=== PATIENT | male | born 1980 | race Caucasian/White ===

== ENCOUNTER 2017-02-10 21:08 | Inpatient (IN) ==
[2017-02-10] MEDS ORDERED: PROMETHAZINE 25 MG/1 ML VIAL IM PRN (22:01)
[2017-02-10] MEDS: PANTOPRAZOLE 40 MG VIAL IV SCH (22:32)
[2017-02-10] MEDS: SODIUM CHLORIDE 0.9% 1,000 ML IV SCH (22:32)
[2017-02-10] MEDS: ONDANSETRON 4 MG/2 ML VIAL IV PRN (22:33)
[2017-02-10] MEDS: ACETAMINOPHEN 500 MG TABLET PO PRN (22:35)
[2017-02-10] MEDS ORDERED: SODIUM CHLORIDE 0.9% 1,000 ML IV ONE (22:43)
[2017-02-10 23:21] LABS: Basophils # 0.1 10*3/uL (0.0-0.2); Basophils % 0.4 % (0.0-0.8); Eosinophils # 0.2 10*3/uL (0.0-0.87); Eosinophils % 1.6 % (0.00-10.9); Hematocrit 34.3 VOL% (42.0-52.0); Hemoglobin 14.1 GM/DL (14.0-18.0); Immature Granulocytes % 0.9 %; Immature Granulocytes Absolute 0.13 #; Lymphocytes # 1.4 10*3/uL (1.4-4.0); Lymphocytes % 10.3 % (21.2-54.2); Mean Corpuscular HGB Conc 41.1 GM/DL (32-36); Mean Corpuscular Hemoglobin 35 PG (27-34); Mean Corpuscular Volume 83.9 FL (87-102); Mean Platelet Volume 9.8 FL (9.6-12.0); Monocytes # 0.7 10*3/uL (0.11-0.8); Neutrophils # 11.3 10*3/uL (1.4-7.4); Neutrophils % 81.8 % (38.7-73.9); Platelet Count 412 T/CUMM (130-400); Red Blood Count 4.09 MC/CUMM (3.8-5.5); Red Cell Distribution Width 13.6 % (9.3-17.3); White Blood Count 13.8 T/CUMM (4-12)
[2017-02-10 23:47] LABS: Band Neutrophils 2 % (0-10); Lymphocytes 15 % (20-55); Platelet Estimate Increased; Segmented Neutrophils 78 % (50-85); Total Cells Counted 100
[2017-02-11 00:03] LABS: Albumin 4.3 G/DL (3.4-5.0); Bilirubin,Total 0.4 MG/DL (0.2-1.0); Calcium 9.2 MG/DL (8.5-10.1); Magnesium 1.4 MG/DL (1.8-2.4); Osmolality,Calculated 245.3 MOS/KG (273-304); Potassium 3.8 MMOL/L (3.5-5.1); Risk Ratio 8.53; Total Protein 7.7 G/DL (6.4-8.3); VLDL CHOLESTEROL 179.2 MG/DL
[2017-02-11] MEDS ORDERED: GLUCAGON 1 MG VIAL IM PRN (00:16)
[2017-02-11] MEDS ORDERED: DEXTROSE 50% 25 GM/50 ML VIAL IV PRN ×3 (00:16→14:25)
[2017-02-11] MEDS ORDERED: INSULIN LISPRO 100 UNIT/ML SUBCUT SCH ×2 (00:30→11:00)
[2017-02-11] MEDS: INSULIN LISPRO 100 UNIT/ML SUBCUT SCH ×3 (00:42→08:58)
[2017-02-11] MEDS ORDERED: MAGNESIUM SULF RIDER 4 GM in PREMIX 1 EACH IV PRN (00:48)
[2017-02-11] MEDS ORDERED: POTASSIUM CHLORIDE 20 MEQ TABLET PO ONE (01:02)
[2017-02-11] MEDS: MAGNESIUM SULF RIDER 2 GM in PREMIX 1 EACH IV PRN ×2 (01:13→03:15)
[2017-02-11] MEDS: HYDROmorphone 2 MG/1 ML VIAL IV PRN ×7 (01:25→21:33)
[2017-02-11] MEDS: ONDANSETRON 4 MG/2 ML VIAL IV PRN ×4 (01:27→21:34)
[2017-02-11] MEDS ORDERED: CIPROFLOXACIN INJ 400 MG in PREMIX 1 EACH IV SCH (05:30)
[2017-02-11] MEDS: SODIUM CHLORIDE 0.9% 1,000 ML IV SCH ×3 (07:00→19:26)
[2017-02-11] MEDS ORDERED: hydrALAZINE 20 MG/1 ML VIAL IV PRN (07:33)
[2017-02-11] MEDS ORDERED: SODIUM CHLORIDE 0.9% 1,000 ML IV ONE ×2 (07:55→10:46)
[2017-02-11 08:54] LABS: Hematocrit 35.7 VOL% (42.0-52.0); Mean Corpuscular HGB Conc 42.3 GM/DL (32-36); Mean Corpuscular Hemoglobin 36 PG (27-34); Red Cell Distribution Width 13.6 % (9.3-17.3); White Blood Count 21.2 T/CUMM (4-12)
[2017-02-11 08:55] LABS: Basophils # 0.1 10*3/uL (0.0-0.2); Basophils % 0.4 % (0.0-0.8); Eosinophils # 0.1 10*3/uL (0.0-0.87); Eosinophils % 0.4 % (0.00-10.9); Immature Granulocytes % 1.4 %; Immature Granulocytes Absolute 0.29 #; Lymphocytes # 1.7 10*3/uL (1.4-4.0); Lymphocytes % 8.1 % (21.2-54.2); Mean Platelet Volume 9.7 FL (9.6-12.0); Monocytes # 1.2 10*3/uL (0.11-0.8); Monocytes % 5.7 % (1.7-12.7); NRBC # 0.02 10*3/uL; Neutrophils # 17.8 10*3/uL (1.4-7.4); Platelet Count 397 T/CUMM (130-400)
[2017-02-11] MEDS: COLESEVELAM 625 MG TABLET PO SCH ×2 (08:57→17:06)
[2017-02-11] MEDS: ACETAMINOPHEN 500 MG TABLET PO PRN ×3 (08:57→21:51)
[2017-02-11] MEDS: PANTOPRAZOLE 40 MG VIAL IV SCH ×2 (08:57→21:19)
[2017-02-11 09:21] LABS: Hemoglobin 15.1 GM/DL (14.0-18.0)
[2017-02-11 09:51] LABS: Calcium 8.3 MG/DL (8.5-10.1)
[2017-02-11 09:52] LABS: Albumin 4.1 G/DL (3.4-5.0); Blood Urea Nitrogen 6 MG/DL (7-18)
[2017-02-11 09:55] LABS: Alanine Aminotransferase 22 U/L (16-61)
[2017-02-11 09:56] LABS: Aspartate Amino Transferase 18 U/L (0-37)
[2017-02-11 10:05] LABS: Band Neutrophils 2 % (0-10); Eosinophils 1 % (0-10); Lymphocytes 14 % (20-55); Segmented Neutrophils 79 % (50-85); Total Cells Counted 100
[2017-02-11 10:06] LABS: Free T4 (Free Thyroxine) 0.94 NG/DL (0.76-1.46); Platelet Estimate Normal
[2017-02-11 10:08] LABS: Alkaline Phosphatase 82 U/L (45-117)
[2017-02-11 10:10] LABS: Glucose 433 MG/DL (74-106); Potassium 3.5 MMOL/L (3.5-5.1)
[2017-02-11 10:11] LABS: Magnesium 1.8 MG/DL (1.8-2.4)
[2017-02-11 10:16] LABS: Sodium 114 MMOL/L (136-145)
[2017-02-11] MEDS: PIPERACILLIN/TAZOBACTAM 3,375 MG in SODIUM CHLORIDE 0.9% 100 ML IV SCH ×2 (10:36→18:00)
[2017-02-11 11:51] LABS: Apearance,Urine CLEAR (Clear); Bilirubin,Urine Negative (Negative); Blood, Urine Small mg/dL (Negative); Glucose,Urine (UA) >=500 mg/dL (Negative); Hyaline Casts,Urine 1 /LPF (0-3); Ketones,Urine 80 mg/dL (Negative); Mucus,Urine Occasional /LPF (Occasional); Nitrite,Urine Negative (Negative); Protein,Urine 30 MG/DL; RBC,Urine <1 /HPF (0-4); Urine Color Yellow (Yellow); Urine Specific Gravity 1.025 (1.001-1.035); Urine Urobilinogen < 2.0 EU/DL (0.2-1.0); WBC,Urine <1 /HPF (0-6)
[2017-02-11 12:10] LABS: Calcium 7.7 MG/DL (8.5-10.1); Osmolality,Calculated 271.5 MOS/KG (273-304); Potassium 4.3 MMOL/L (3.5-5.1)
[2017-02-11] MEDS ORDERED: SODIUM PHOSPHATE IV PRN (13:08)
[2017-02-11] MEDS ORDERED: SODIUM BICARB INJ 100 MEQ in STERILE WATER INJ 400 ML IV PRN (13:08)
[2017-02-11] MEDS ORDERED: SODIUM CHLORIDE 0.9% IV PRN (13:08)
[2017-02-11] MEDS: INSULIN REGULAR DRIP 100 ML IV SCH ×2 (13:11→22:13)
[2017-02-11] MEDS ORDERED: CALCIUM GLUCONATE 1,000 MG in SODIUM CHLORIDE 0.9% 100 ML IV ONE (14:00)
[2017-02-11] MEDS ORDERED: SODIUM CHLORIDE 0.9% 1,000 ML IV SCH (14:09)
[2017-02-11] MEDS: ENOXAPARIN 40 MG/0.4 ML SYRINGE SUBCUT SCH (15:11)
[2017-02-11] MEDS: DEXTROSE 5% NACL 0.9% 1,000 ML IV SCH ×2 (15:40→21:13)
[2017-02-11 16:16] LABS: Osmolality,Calculated 263.4 MOS/KG (273-304); Potassium 3.7 MMOL/L (3.5-5.1)
[2017-02-11] MEDS: POTASSIUM CHLORIDE RIDER 10 MEQ in PREMIX 1 EACH IV PRN ×4 (16:31→22:18)
[2017-02-11] MEDS ORDERED: DOCUSATE SODIUM 100 MG CAPSULE PO PRN (17:22)
[2017-02-11] MEDS ORDERED: LORazepam 2 MG/1 ML VIAL IV PRN (17:23)
[2017-02-11] MEDS ORDERED: HYDROmorphone 2 MG/1 ML VIAL IV ONE (17:25)
[2017-02-11] MEDS: BISACODYL 5 MG TABLET PO PRN (18:01)
[2017-02-11] MEDS: METOCLOPRAMIDE 10 MG/2 ML VIAL IV PRN ×2 (18:21→18:29)
[2017-02-11 19:40] LABS: Calcium 7.6 MG/DL (8.5-10.1); Osmolality,Calculated 268.1 MOS/KG (273-304); Potassium 3.9 MMOL/L (3.5-5.1)
[2017-02-12 00:35] LABS: Calcium 7.3 MG/DL (8.5-10.1); Osmolality,Calculated 266.8 MOS/KG (273-304); Potassium 4.3 MMOL/L (3.5-5.1)
[2017-02-12] MEDS: SODIUM CHLORIDE 0.9% 1,000 ML IV SCH ×6 (01:14→19:10)
[2017-02-12] MEDS: ONDANSETRON 4 MG/2 ML VIAL IV PRN ×4 (01:22→20:57)
[2017-02-12] MEDS: HYDROmorphone 2 MG/1 ML VIAL IV PRN ×6 (01:27→20:56)
[2017-02-12] MEDS: ACETAMINOPHEN 500 MG TABLET PO PRN ×4 (02:00→16:15)
[2017-02-12] MEDS: VANCOMYCIN INJ 1,750 MG in SODIUM CHLORIDE 0.9% 500 ML IV SCH ×3 (02:13→18:58)
[2017-02-12] MEDS: PIPERACILLIN/TAZOBACTAM 3,375 MG in SODIUM CHLORIDE 0.9% 100 ML IV SCH ×3 (03:24→18:01)
[2017-02-12 04:20] LABS: Bilirubin,Total 0.5 MG/DL (0.2-1.0); Calcium 7.6 MG/DL (8.5-10.1); Osmolality,Calculated 267.5 MOS/KG (273-304); Potassium 4.2 MMOL/L (3.5-5.1); Risk Ratio 11.35; Total Protein 6.4 G/DL (6.4-8.3)
[2017-02-12 04:55] LABS: Basophils # 0.1 10*3/uL (0.0-0.2); Basophils % 0.4 % (0.0-0.8); Eosinophils # 0.1 10*3/uL (0.0-0.87); Eosinophils % 0.4 % (0.00-10.9); Immature Granulocytes % 1.3 %; Immature Granulocytes Absolute 0.26 #; Lymphocytes # 1.5 10*3/uL (1.4-4.0); Lymphocytes % 7.6 % (21.2-54.2); Mean Corpuscular HGB Conc 36.5 GM/DL (32-36); Mean Corpuscular Hemoglobin 32 PG (27-34); Mean Corpuscular Volume 87.6 FL (87-102); Mean Platelet Volume 9.9 FL (9.6-12.0); Monocytes # 1.1 10*3/uL (0.11-0.8); Monocytes % 5.8 % (1.7-12.7); NRBC # 0.03 10*3/uL; Neutrophils # 16.5 10*3/uL (1.4-7.4); Neutrophils % 84.5 % (38.7-73.9); Platelet Count 339 T/CUMM (130-400); Red Blood Count 3.88 MC/CUMM (3.8-5.5); White Blood Count 19.6 T/CUMM (4-12)
[2017-02-12 05:02] LABS: Hemoglobin 12.4 GM/DL (14.0-18.0)
[2017-02-12] MEDS ORDERED: SODIUM CHLORIDE 0.45% 1,000 ML IV SCH (06:09)
[2017-02-12 06:55] LABS: Calcium 7.6 MG/DL (8.5-10.1); Osmolality,Calculated 271.2 MOS/KG (273-304); Potassium 4.2 MMOL/L (3.5-5.1)
[2017-02-12] MEDS ORDERED: CALCIUM GLUCONATE 1,000 MG in SODIUM CHLORIDE 0.9% 100 ML IV ONE ×2 (07:54→15:36)
[2017-02-12] MEDS: COLESEVELAM 625 MG TABLET PO SCH ×2 (08:58→18:01)
[2017-02-12] MEDS ORDERED: CALCIUM GLUCONATE IV ONE (09:05)
[2017-02-12] MEDS ORDERED: SODIUM CHLORIDE 0.9% IV ONE (09:05)
[2017-02-12] MEDS ORDERED: ALBUMIN 25% 25 GM in PREMIX 1 EACH IV PRN (09:09)
[2017-02-12] MEDS ORDERED: HEPARIN 5,000 UNIT/1 ML VIAL ONE (09:12)
[2017-02-12] MEDS ORDERED: BUPIVACAINE 0.25% 50 ML VIAL ONE (09:12)
[2017-02-12] MEDS: PANTOPRAZOLE 40 MG VIAL IV SCH ×2 (09:35→20:00)
[2017-02-12] MEDS: INSULIN REGULAR DRIP 100 ML IV SCH ×2 (10:52→19:53)
[2017-02-12] MEDS: ceFAZolin 2,000 MG in PREMIX 1 EACH IV ONE ×2 (11:20→16:25)
[2017-02-12] MEDS ORDERED: MIDAZOLAM 2 MG/2 ML VIAL ONE (11:20)
[2017-02-12] MEDS ORDERED: fentaNYL 100 MCG/2 ML VIAL ONE (11:20)
[2017-02-12 11:30] LABS: INR 1.1; PT Patient Result 11.7 SECS
[2017-02-12 11:51] LABS: Calcium 7.7 MG/DL (8.5-10.1); Osmolality,Calculated 268.2 MOS/KG (273-304); Potassium 4.1 MMOL/L (3.5-5.1)
[2017-02-12 12:58] LABS: Partial Thromboplastin Time 30.8 SECS (0-40)
[2017-02-12] MEDS: DEXTROSE 5% NACL 0.9% 1,000 ML IV SCH ×3 (13:58→21:22)
[2017-02-12 14:33] LABS: Calcium 7.7 MG/DL (8.5-10.1); Osmolality,Calculated 269.1 MOS/KG (273-304); Potassium 3.6 MMOL/L (3.5-5.1)
[2017-02-12] MEDS ORDERED: POTASSIUM CHLORIDE RIDER 100 ML IV ONE (14:52)
[2017-02-12] MEDS: ENOXAPARIN 40 MG/0.4 ML SYRINGE SUBCUT SCH ×2 (14:54→18:06)
[2017-02-12] MEDS: POTASSIUM CHLORIDE RIDER 20 MEQ in PREMIX 1 EACH IV PRN (15:37)
[2017-02-12 18:54] LABS: Blood Urea Nitrogen < 1 MG/DL (7-18); Calcium 8.3 MG/DL (8.5-10.1); Glucose 179 MG/DL (74-106); Osmolality,Calculated 271.3 MOS/KG (273-304); Potassium 3.4 MMOL/L (3.5-5.1); Sodium 136 MMOL/L (136-145)
[2017-02-12] MEDS: DEXT 5% NACL 0.45% KCL 20 MEQ 20 MEQ/1,000 ML BAG IV SCH (19:59)
[2017-02-12] MEDS: IBUPROFEN 400 MG TABLET PO PRN (20:50)
[2017-02-12 22:54] LABS: Calcium 7.9 MG/DL (8.5-10.1); Osmolality,Calculated 276.7 MOS/KG (273-304); Potassium 3.6 MMOL/L (3.5-5.1)
[2017-02-13] MEDS: INSULIN REGULAR DRIP 100 ML IV SCH (02:50)
[2017-02-13] MEDS: PIPERACILLIN/TAZOBACTAM 3,375 MG in SODIUM CHLORIDE 0.9% 100 ML IV SCH ×3 (03:01→20:43)
[2017-02-13] MEDS: VANCOMYCIN INJ 1,750 MG in SODIUM CHLORIDE 0.9% 500 ML IV SCH ×3 (03:02→20:43)
[2017-02-13] MEDS: DEXT 5% NACL 0.45% KCL 20 MEQ 20 MEQ/1,000 ML BAG IV SCH ×2 (03:03→06:28)
[2017-02-13] MEDS: IBUPROFEN 400 MG TABLET PO PRN ×2 (03:12→13:30)
[2017-02-13] MEDS: HYDROmorphone 2 MG/1 ML VIAL IV PRN ×4 (03:20→20:38)
[2017-02-13] MEDS: ONDANSETRON 4 MG/2 ML VIAL IV PRN ×3 (03:24→20:32)
[2017-02-13 03:47] LABS: Albumin 2.9 G/DL (3.4-5.0); Bilirubin,Total 0.7 MG/DL (0.2-1.0); Calcium 8.2 MG/DL (8.5-10.1); Magnesium 2.1 MG/DL (1.8-2.4); Osmolality,Calculated 275.5 MOS/KG (273-304); Potassium 3.7 MMOL/L (3.5-5.1); Total Protein 6.3 G/DL (6.4-8.3)
[2017-02-13 03:59] LABS: Basophils % 0.2 % (0.0-0.8); Eosinophils # 0.1 10*3/uL (0.0-0.87); Eosinophils % 1.3 % (0.00-10.9); Hematocrit 30.3 VOL% (42.0-52.0); Hemoglobin 10.4 GM/DL (14.0-18.0); Immature Granulocytes Absolute 0.08 #; Lymphocytes # 0.8 10*3/uL (1.4-4.0); Lymphocytes % 9.5 % (21.2-54.2); Mean Corpuscular HGB Conc 34.3 GM/DL (32-36); Mean Corpuscular Hemoglobin 30 PG (27-34); Mean Corpuscular Volume 86.1 FL (87-102); Mean Platelet Volume 10.1 FL (9.6-12.0); Monocytes # 0.2 10*3/uL (0.11-0.8); Monocytes % 2.7 % (1.7-12.7); NRBC # 0.05 10*3/uL; Neutrophils # 7.1 10*3/uL (1.4-7.4); Neutrophils % 85.3 % (38.7-73.9); Platelet Count 168 T/CUMM (130-400); Red Blood Count 3.52 MC/CUMM (3.8-5.5); White Blood Count 8.3 T/CUMM (4-12)
[2017-02-13 06:57] LABS: Giant Platelets Few; Platelet Estimate Decreased
[2017-02-13 07:10] LABS: Calcium 7.9 MG/DL (8.5-10.1); Osmolality,Calculated 270.8 MOS/KG (273-304); Potassium 3.7 MMOL/L (3.5-5.1)
[2017-02-13] MEDS ORDERED: CALCIUM GLUCONATE 2,000 MG in SODIUM CHLORIDE 0.9% 100 ML IV ONE (07:29)
[2017-02-13] MEDS ORDERED: INSULIN REGULAR DRIP 100 ML IV SCH (08:00)
[2017-02-13] MEDS ORDERED: LACTULOSE 20 GM/30 ML UDCUP PO PRN (08:03)
[2017-02-13] MEDS ORDERED: MAGNESIUM HYDROXIDE SUSP 30 ML UDCUP PO PRN (08:03)
[2017-02-13] MEDS ORDERED: diphenhydrAMINE CAP 25 MG CAPSULE PO ONE (08:06)
[2017-02-13] MEDS: ACETAMINOPHEN 500 MG TABLET PO PRN (08:28)
[2017-02-13] MEDS: SODIUM CHLOR 0.45% KCL 20 MEQ 20 MEQ/1,000 ML BAG IV SCH ×3 (08:34→18:25)
[2017-02-13] MEDS: COLESEVELAM 625 MG TABLET PO SCH ×2 (09:27→17:32)
[2017-02-13] MEDS: PANTOPRAZOLE 40 MG VIAL IV SCH ×2 (09:32→20:38)
[2017-02-13 10:13] LABS: Hepatitis A Ab IgM Quant 0.46 Index; Hepatitis A Ab IgM Result Negative (Negative); Hepatitis B Core IgM Quant 0.14 Index; Hepatitis B Core IgM Result Negative (Negative); Hepatitis B Surface Ag Quant < 0.10 Index; Hepatitis B Surface Ag Result Negative (Negative); Hepatitis C Virus Ab Quant 0.08 Index; Hepatitis C Virus Ab Result Negative (Negative)
[2017-02-13] MEDS: BISACODYL 5 MG TABLET PO PRN (11:55)
[2017-02-13 12:57] LABS: Blood Urea Nitrogen < 1 MG/DL (7-18); Calcium 8.3 MG/DL (8.5-10.1); Glucose 135 MG/DL (74-106); Osmolality,Calculated 269.3 MOS/KG (273-304); Potassium 3.4 MMOL/L (3.5-5.1); Sodium 136 MMOL/L (136-145)
[2017-02-13] MEDS ORDERED: POTASSIUM PHOSPHATE 30 MMOL in SODIUM CHLORIDE 0.9% 250 ML IV ONE (13:48)
[2017-02-13] MEDS ORDERED: INSULIN GLARGINE 100 UNIT/ML SUBCUT ONE (18:14)
[2017-02-13 18:25] LABS: Calcium 8.2 MG/DL (8.5-10.1)
[2017-02-13 18:26] LABS: Potassium 3.3 MMOL/L (3.5-5.1)
[2017-02-13] MEDS: INSULIN LISPRO 100 UNIT/ML SUBCUT SCH (20:49)
[2017-02-14] MEDS ORDERED: ALUM/MAG/SIMETH/LIDO VISC 1:1 30 ML BOTTLE PO ONE
[2017-02-14] MEDS ORDERED: SIMETHICONE CHEW 125 MG TABLET PO PRN
[2017-02-14] MEDS: INSULIN LISPRO 100 UNIT/ML SUBCUT SCH ×6 (00:10→20:55)
[2017-02-14] MEDS: IBUPROFEN 400 MG TABLET PO PRN ×2 (00:27→07:25)
[2017-02-14] MEDS: PIPERACILLIN/TAZOBACTAM 3,375 MG in SODIUM CHLORIDE 0.9% 100 ML IV SCH ×3 (04:12→21:57)
[2017-02-14] MEDS: VANCOMYCIN INJ 1,750 MG in SODIUM CHLORIDE 0.9% 500 ML IV SCH (04:12)
[2017-02-14 04:21] LABS: Basophils % 0.5 % (0.0-0.8); Eosinophils # 0.2 10*3/uL (0.0-0.87); Eosinophils % 4.1 % (0.00-10.9); Hemoglobin 9.5 GM/DL (14.0-18.0); Immature Granulocytes % 0.5 %; Immature Granulocytes Absolute 0.02 #; Lymphocytes # 0.7 10*3/uL (1.4-4.0); Lymphocytes % 17.3 % (21.2-54.2); Mean Corpuscular HGB Conc 35.2 GM/DL (32-36); Mean Corpuscular Hemoglobin 30 PG (27-34); Mean Corpuscular Volume 85.4 FL (87-102); Mean Platelet Volume 9.9 FL (9.6-12.0); Monocytes # 0.3 10*3/uL (0.11-0.8); Monocytes % 6.6 % (1.7-12.7); Neutrophils # 2.8 10*3/uL (1.4-7.4); Platelet Count 159 T/CUMM (130-400); Red Blood Count 3.16 MC/CUMM (3.8-5.5); Red Cell Distribution Width 14.1 % (9.3-17.3); White Blood Count 3.9 T/CUMM (4-12)
[2017-02-14 04:31] LABS: Bilirubin,Total 0.6 MG/DL (0.2-1.0); Calcium 7.9 MG/DL (8.5-10.1); Osmolality,Calculated 274.8 MOS/KG (273-304); Potassium 3.4 MMOL/L (3.5-5.1); Total Protein 6.5 G/DL (6.4-8.3)
[2017-02-14] MEDS: SODIUM CHLOR 0.45% KCL 20 MEQ 20 MEQ/1,000 ML BAG IV SCH (06:05)
[2017-02-14] MEDS: POTASSIUM CHLORIDE RIDER 20 MEQ in PREMIX 1 EACH IV PRN (06:31)
[2017-02-14] MEDS: METOCLOPRAMIDE 10 MG/2 ML VIAL IV PRN (08:38)
[2017-02-14] MEDS: PANTOPRAZOLE 40 MG VIAL IV SCH ×2 (09:23→20:56)
[2017-02-14] MEDS ORDERED: CALCIUM GLUCONATE 2,000 MG in SODIUM CHLORIDE 0.9% 100 ML IV PRN (10:00)
[2017-02-14] MEDS ORDERED: ACETAMINOPHEN 500 MG TABLET PO ONE (10:21)
[2017-02-14] MEDS ORDERED: diphenhydrAMINE CAP 25 MG CAPSULE PO ONE (10:22)
[2017-02-14] MEDS: COLESEVELAM 625 MG TABLET PO SCH ×2 (10:26→17:13)
[2017-02-14] MEDS ORDERED: HEPARIN 10,000 UNIT/10 ML VIAL IV SCH ×2 (10:30)
[2017-02-14] MEDS ORDERED: INSULIN LISPRO 100 UNIT/ML SUBCUT SCH (16:00)
[2017-02-14] MEDS: ACETAMINOPHEN 500 MG TABLET PO PRN (17:29)
[2017-02-14] MEDS: ONDANSETRON 4 MG/2 ML VIAL IV PRN (18:34)
[2017-02-14] MEDS: HYDROmorphone 2 MG/1 ML VIAL IV PRN (18:34)
[2017-02-14] MEDS: INSULIN GLARGINE 100 UNIT/ML SUBCUT SCH (20:55)
[2017-02-15] MEDS: INSULIN LISPRO 100 UNIT/ML SUBCUT SCH ×6 (00:05→21:18)
[2017-02-15] MEDS: HYDROmorphone 2 MG/1 ML VIAL IV PRN ×3 (02:02→21:24)
[2017-02-15] MEDS: ONDANSETRON 4 MG/2 ML VIAL IV PRN ×3 (02:03→21:24)
[2017-02-15] MEDS ORDERED: SODIUM CHLORIDE 0.9% 500 ML IV ONE (02:04)
[2017-02-15 05:13] LABS: Basophils % 0.4 % (0.0-0.8); Eosinophils # 0.2 10*3/uL (0.0-0.87); Eosinophils % 4.6 % (0.00-10.9); Hematocrit 29.8 VOL% (42.0-52.0); Hemoglobin 10.2 GM/DL (14.0-18.0); Immature Granulocytes % 1.2 %; Immature Granulocytes Absolute 0.06 #; Lymphocytes # 0.9 10*3/uL (1.4-4.0); Lymphocytes % 16.7 % (21.2-54.2); Mean Corpuscular HGB Conc 34.2 GM/DL (32-36); Mean Corpuscular Hemoglobin 30 PG (27-34); Mean Corpuscular Volume 86.6 FL (87-102); Mean Platelet Volume 9.9 FL (9.6-12.0); Monocytes # 0.4 10*3/uL (0.11-0.8); Monocytes % 7.5 % (1.7-12.7); Neutrophils # 3.6 10*3/uL (1.4-7.4); Neutrophils % 69.6 % (38.7-73.9); Platelet Count 165 T/CUMM (130-400); Red Blood Count 3.44 MC/CUMM (3.8-5.5); Red Cell Distribution Width 14.2 % (9.3-17.3); White Blood Count 5.2 T/CUMM (4-12)
[2017-02-15 05:40] LABS: Albumin 3.7 G/DL (3.4-5.0); Bilirubin,Total 0.7 MG/DL (0.2-1.0); Calcium 8.2 MG/DL (8.5-10.1); Osmolality,Calculated 277.7 MOS/KG (273-304); Potassium 3.4 MMOL/L (3.5-5.1); Total Protein 7.2 G/DL (6.4-8.3)
[2017-02-15] MEDS: PIPERACILLIN/TAZOBACTAM 3,375 MG in SODIUM CHLORIDE 0.9% 100 ML IV SCH (05:51)
[2017-02-15 08:34] LABS: Free T4 (Free Thyroxine) 1.13 NG/DL (0.76-1.46)
[2017-02-15] MEDS: COLESEVELAM 625 MG TABLET PO SCH ×2 (08:48→17:50)
[2017-02-15] MEDS: PANTOPRAZOLE 40 MG VIAL IV SCH (08:48)
[2017-02-15] MEDS: SODIUM CHLOR 0.45% KCL 20 MEQ 20 MEQ/1,000 ML BAG IV SCH ×3 (08:49→21:31)
[2017-02-15] MEDS ORDERED: NIACIN ER 500 MG TABLET PO SCH ×2 (09:00→21:00)
[2017-02-15] MEDS: PANTOPRAZOLE 40 MG TABLET PO SCH (20:55)
[2017-02-15] MEDS: METOCLOPRAMIDE 10 MG/2 ML VIAL IV PRN (20:55)
[2017-02-15] MEDS ORDERED: ASPIRIN 325 MG TABLET PO SCH (21:00)
[2017-02-15] MEDS: INSULIN GLARGINE 100 UNIT/ML SUBCUT SCH (21:16)
[2017-02-16] MEDS: INSULIN LISPRO 100 UNIT/ML SUBCUT SCH ×4 (00:06→13:26)
[2017-02-16] MEDS: SODIUM CHLOR 0.45% KCL 20 MEQ 20 MEQ/1,000 ML BAG IV SCH ×2 (05:00→12:31)
[2017-02-16 05:34] LABS: Albumin 3.7 G/DL (3.4-5.0); Bilirubin,Total 1.2 MG/DL (0.2-1.0); Calcium 8.7 MG/DL (8.5-10.1); Magnesium 2.3 MG/DL (1.8-2.4); Osmolality,Calculated 275.7 MOS/KG (273-304); Potassium 3.4 MMOL/L (3.5-5.1); Total Protein 7.3 G/DL (6.4-8.3)
[2017-02-16 12:41] VITALS: BP 116/74
[2017-02-16] MEDS ORDERED: PROPOFOL 200 MG/20 ML VIAL IV ONE (15:32)
[2017-02-16] MEDS ORDERED: LIDOCAINE 100 MG/5 ML SYRINGE ONE (15:32)
[2017-02-16] MEDS: COLESEVELAM 625 MG TABLET PO SCH (15:37)
[2017-02-16] MEDS: PANTOPRAZOLE 40 MG TABLET PO SCH (15:37)
== END 2017-02-16 16:18 | disposition home or self-care (01) | DRG 438 ==
LOC: N.TELES 21:30 → N.ICU 02-11 13:10 → N.TELEN 02-14 16:25
PROVIDERS: ADMIT Internal Medicine; ATTEND Internal Medicine